=== PATIENT | female | born 1970 | race African-American/Black ===

== ENCOUNTER 2016-10-28 08:50 | Observation (INO) | payer OTHER ==
[2016-10-28] MEDS ORDERED: Pantoprazole IV* 40 MG IV ONE (10:07)
[2016-10-28 10:09] LABS: Hematocrit 32 % (35-47); Hemoglobin 10.2 g/dl (12.0-16.0); Mean Corpuscular HGB Conc 32 g/dl (31-36); Mean Corpuscular Hemoglobin 25 pg (27-31); Mean Corpuscular Volume 77 fL (80-97); Mean Platelet Volume 8 um3 (7.4-10.4); Red Cell Distribution Width 16 % (10.5-15); White Blood Count 7.3 10^3/ul (3.5-10.8)
[2016-10-28 10:24] LABS: Albumin 3.7 g/dL (3.2-5.2); EGFR Non-African American 96.4 (>60); Globulin 3.2 g/dL (2-4); Potassium 4.1 mmol/L (3.5-5.0); Total Bilirubin 0.3 mg/dL (0.2-1.0); Total Protein 6.9 g/dL (6.4-8.9)
[2016-10-28 10:25] LABS: Troponin I 0.03 ng/mL (<0.04)
[2016-10-28] MEDS ORDERED: Pantoprazole IV* 80 MG in NS 0.9% 250 ML* 250 ML IV SCH (11:00)
[2016-10-28] MEDS ORDERED: Pantoprazole IV* 80 MG in NS 0.9% 250 ML* 250 ML IVPB SCH (11:00)
[2016-10-28] MEDS ORDERED: Ondansetron INJ* 2 MG/ML VIAL IV PRN (12:34)
[2016-10-28] MEDS ORDERED: Acetaminophen TAB* 325 MG PO PRN (12:43)
[2016-10-28] MEDS ORDERED: traMADol TAB* 50 MG PO PRN (12:43)
[2016-10-28] MEDS: Pantoprazole IV* 80 MG in NS 0.9% 250 ML* 250 ML IVPB SCH ×2 (13:20→22:05)
[2016-10-28] MEDS: NS 0.9% 1000 ML* 1,000 ML IV SCH ×2 (13:32→23:40)
[2016-10-28 13:45] LABS: Hematocrit 29 % (35-47); Hemoglobin 9.4 g/dl (12.0-16.0)
[2016-10-28] MEDS ORDERED: Midazolam* 1 MG/ML 10 ML VIAL (10 MG) ONE (16:35)
[2016-10-28] MEDS ORDERED: Meperidine SYRINGE* 50 MG/ML ONE (16:35)
--- NOTE | 2016-10-28 19:15 | HP ---
HISTORY AND PHYSICAL: DATE OF ADMISSION: 10/28/16 PRIMARY CARE PROVIDER: Dr. Cai. CHIEF COMPLAINT: Hematemesis. HISTORY OF PRESENT ILLNESS: Ms. Dominguez is a 45-year-old female who has a history of chronic pain and utilizes ibuprofen 1200 mg at bedtime every night for the last 2 weeks but intermittently over the last month and a half, who went to the bed feeling "normal" though she states she has not been feeling 100 % for the last few weeks. She states that yesterday was somewhat odd in that she only ate oatmeal for breakfast at 0800 and again at dinner at 1920. She states that when she got home, she drank a lot a tea. She just did not feel well. She states she did not sleep well overnight. She noticed a fishy taste in her mouth. The patient woke up to get ready for work, was found to be very nauseous. She suddenly felt like she needed to vomit. She had been instructed in the past to vomit into something that could be evaluated as opposed to the toilet if it was out of the ordinary. The patient vomited into a gallon Ziploc bag. The patient noticed that the material was very black and there was red liquid and clots. The patient immediately after vomiting, sat down on the toilet and she passed a soft stool that was very black in color. The patient then took a shower and then had a second bowel movement after taking a shower. This too was very black. She denies any black stools prior to today. She does state that she had a colonoscopy [address] Blackmon due to change in eating habits and feeling unwell. The patient states that she has had epigastric discomfort since this past Thursday. The patient admits to feeling lightheaded. She denies any chest pain or palpitations. She does have chronic shortness of breath and this is no worse. The patient denies any other medication usage other than the ibuprofen. PAST MEDICAL HISTORY: 1. Borderline type 2 diabetes. 2. Chronic pain in the knees, hips and low back. MEDICATIONS: Ibuprofen 1200 mg p.o. q.h.s. ALLERGIES: PENICILLIN. FAMILY HISTORY: Mom is living. She is 70 and has diabetes. Dad at the age of 50 of cirrhosis secondary to alcoholism. SOCIAL HISTORY: The patient is a lifelong nonsmoker. She does not drink alcohol. 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 She is not . She has 1 child. Her sister, Caas, would be her surrogate decision maker. REVIEW OF SYSTEMS: The patient denies any fevers or chills. She admits to anorexia over the last few days. No chest pain. No edema. No palpitations. No cough. She does admit to chronic shortness of breath. Nausea and vomiting as above as well as epigastric pain as above. No true diarrhea, though she notes her stools are softer than usual. No hematuria, no dysuria, no focal weakness or sensory loss. No sudden changes in vision. She does note that food has been sticking in her throat more since this past Thursday. She admits to the joint pain as listed in her past medical history. No rashes, no anxiety or depression. At baseline though, she does state that she is nervous about her current situation. PHYSICAL EXAMINATION GENERAL: The patient is a well-developed middle-aged obese female, lying in the bed in no acute distress. VITAL SIGNS: Blood pressure 116/96, pulse 103, respirations 18, temp 97.2, O2 sat is 98% on room air. HEENT: Pupils are equal, they are round, they react to light. Extraocular muscles are intact. Oropharynx is clear. Oral mucosa is moist. NECK: There is no submandibular, cervical or supraclavicular adenopathy. Thyroid is not enlarged. No thyroid nodule is noted, though this is a difficult exam given her body habitus. PULMONARY: Lungs are clear to auscultation bilaterally. CARDIAC: Normal S1, S2. Heart rate is mildly tachycardic but regular. There is no lower extremity edema. ABDOMEN: Bowel sounds present. Abdomen is soft, obese, nondistended. She is tender in the epigastrium. MUSCULOSKELETAL: There is no cyanosis or clubbing of the digits. There is full active range of motion of all 4 extremities. SKIN: Warm and dry. There are no rashes. NEUROLOGIC: Cranial nerves II through XII are grossly intact. Sensation is intact to light touch throughout. Strength is 5/5 and symmetric in both upper and lower extremities bilaterally. PSYCH: The patient is alert, she is oriented x3. Affect appears appropriate. DIAGNOSTIC STUDIES/LAB DATA: WBC 7.3, hemoglobin 10.2, hematocrit 32, platelets 304. INR 1.06. Sodium 136, potassium 4.1, chloride 105, CO2 26, BUN 31, creatinine 0.66, glucose 159, calcium 9.0, bilirubin 0.3, AST 17, ALT 20, alk phos 92, troponin 0.03, albumin 3.7. EKG reveals sinus tachycardia without any acute ST -T-wave abnormalities. ASSESSMENT AND PLAN: Ms. Dominguez is a 45-year-old female who has a history of chronic pain for which she takes ibuprofen nightly, who presents to the emergency room with complaints of hematemesis and black stool. 1. Upper GI bleed. The patient's story and lab work are most consistent with an upper GI bleed. I suspect this is from NSAID use. The patient has been taking 1200 mg of ibuprofen nightly for the last 2 weeks but intermittently over the last month and a half. She does not take any PPI or any other medications. She does have epigastric pain. I am suspicious she may have an ulcer secondary to NSAID use. The patient's hemoglobin was low at 10.2; however , lab work from 2013 reveals her hemoglobin to be in the 10.5 to 11.5 range. The patient will be maintained on a Protonix drip. This has been ordered in the emergency room. The patient's case has been run by Dr. Oro who is system controller for Gastroenterology. The patient will be n.p.o. with plans for hopefully endoscopy later today. I will monitor the patient in the intensive care unit given the volume of blood she vomited up (she reportedly vomited enough to fill half the gallon bag). The patient is mildly tachycardic but otherwise is appearing stable. She is being placed in the ICU for close monitoring. 2. Borderline diabetes. The patient's hemoglobin A1c will be obtained from her emergency room labs. 3. Chronic pain. Tylenol and tramadol will be available for pain control. She will not be allowed to have any NSAIDs at this time. 4. DVT prophylaxis. According to the Adult Thrombosis Prophylaxis Risk Factor Assessment Guide, the patient has a total risk factor score of 2, making her moderate risk. SCD's will be utilized as DVT prophylaxis given her GI bleed. 5. Code status is DNR. The patient indicates again that her sister, Casa, is her surrogate decision maker. TIME SPENT: Sixty five minutes were spent admitting this patient. CC: Dr. Cai* [id number]/[facility] #: [id number] MTDLillie
--- NOTE | 2016-10-29 00:02 | CONS ---
GASTROENTEROLOGY CONSULT: DATE: 10/28/16 CONSULTING PHYSICIANS: Dr. Liliam Youssef, Dr. Mary Cai. REASON FOR CONSULT: Hematemesis. 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 She has been having epigastric pain for a number of months. It has worsened. She does have a pattern of having acid indigestion if she skips meals, but has never taken any self-prescribed stomach remedies and nothing by prescription. She has been taking ibuprofen 1200 mg a day since it was prescribed last May or June for pain in the low back, hip, and knee. Initially, she would take 400 to 600 mg several times a day, but she has taking all 1200 mg at night as it helps her sleep, she says. She has been doing that for over a month. She has a history of constipation and 3 weeks ago, had a colonoscopy at [place] that was said to be negative. The grading of the preparation is not available. PAST MEDICAL HISTORY: 1. , 1986. 2. Menorrhagia - status post uterine ablation, February 2014. 3. Breast biopsy, 2007. MEDICATIONS: Nothing per chronic prescription. SOCIAL HISTORY: She is originally from [facility]. 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 REVIEW OF SYSTEMS: She has been anemic for a number of years, but says she has never been on an iron supplement until October 2015, when after her medical appointment, she began taking Femiron. It made her more constipated than usual. She stopped taking it in February. She otherwise has been pushing pumpkin seed and spinach intake. No history of palpitations, syncope, OH, valvular disease, hemoptysis, TB, renal stones, or hepatitis. She has not had any abdominal surgery other than the C- section. PHYSICAL EXAM: She is a very substantially overweight black female in no distress. HEENT exam is unremarkable. She has no adenopathy, though the exam is limited. Lungs are clear and heart sounds are regular. Breast and pelvic exams deferred. The abdomen is obese, symmetric, soft, and nontender. Rectal: Deferred. Extremities show no gross deformity. Neurologic is nonfocal. IMPRESSION: Hematemesis in a woman on consistent high-dose nonsteroidal antiinflammatory drugs. Upper endoscopy is indicated. Her long-term anemia could be remedied by low-dose iron replacement initiated every other day to gain her confidence as regards constipation. [id number]/[facility] #: [id number] MTDD
[2016-10-29 05:39] LABS: Hematocrit 27 % (35-47); Hemoglobin 8.4 g/dl (12.0-16.0); Mean Corpuscular HGB Conc 32 g/dl (31-36); Mean Corpuscular Hemoglobin 25 pg (27-31); Mean Corpuscular Volume 78 fL (80-97); Mean Platelet Volume 8 um3 (7.4-10.4); Red Blood Count 3.41 10^6/ul (4.0-5.4); Red Cell Distribution Width 16 % (10.5-15); White Blood Count 6.7 10^3/ul (3.5-10.8)
[2016-10-29 05:52] LABS: BUN/Creatinine Ratio 23.9 (8-20); Calcium 8.3 mg/dL (8.6-10.3); EGFR African American 121.3 (>60); EGFR Non-African American 94.3 (>60); Potassium 3.7 mmol/L (3.5-5.0)
--- NOTE | 2016-10-29 07:21 | PN ---
Subjective Date of Service: 10/29/16 Interval History: Pt is feeling well. She states the epigastric pain she had on admission has now resolved. She denies any SOB. Objective Active Medications: Acetaminophen (Tylenol Tab*) 650 mg PO Q4H PRN PRN Reason: PAIN Sodium Chloride (Ns 0.9% 1000 Ml*) 1,000 mls @ 100 mls/hr IV PER RATE [facility] Last Admin: 10/28/16 23:40 Dose: 100 mls/hr Pantoprazole Sodium 80 mg/ (Sodium Chloride) 250 mls @ 25 mls/hr IVPB Q10H [facility] Last Admin: 10/28/16 22:05 Dose: 25 mls/hr Ondansetron HCl (Zofran Inj*) 4 mg IV Q6H PRN PRN Reason: NAUSEA Tramadol HCl (Ultram*) 50 mg PO Q6H PRN PRN Reason: PAIN Vital Signs 10/28/16 10/28/16 10/28/16 12:52 12:55 13:00 Temperature 97.5 F Pulse Rate 92 92 93 Respiratory 15 16 17 Rate Blood Pressure 130/84 (mmHg) O2 Sat by Pulse 99 99 99 Oximetry 10/28/16 10/28/16 10/28/16 13:01 13:15 14:00 Temperature Pulse Rate 95 89 81 Respiratory 21 17 22 Rate Blood Pressure 124/73 125/84 127/81 (mmHg) O2 Sat by Pulse 98 99 97 Oximetry 10/28/16 10/28/16 10/28/16 15:00 15:50 16:00 Temperature 98.3 F Pulse Rate 87 102 Respiratory 24 16 Rate Blood Pressure 113/73 115/52 (mmHg) O2 Sat by Pulse 97 98 Oximetry 10/28/16 10/28/16 10/28/16 17:00 17:30 17:55 Temperature Pulse Rate 90 101 102 Respiratory 22 18 23 Rate Blood Pressure 123/75 128/73 109/81 (mmHg) O2 Sat by Pulse 98 98 97 Oximetry 10/28/16 10/28/16 10/28/16 18:00 18:07 18:10 Temperature Pulse Rate 93 100 Respiratory 18 22 Rate Blood Pressure 121/67 112/60 129/77 (mmHg) O2 Sat by Pulse 98 98 Oximetry 10/28/16 10/28/16 10/28/16 18:15 18:21 18:25 Temperature Pulse Rate 108 134 131 Respiratory 31 19 23 Rate Blood Pressure 126/70 165/81 128/82 (mmHg) O2 Sat by Pulse 95 94 96 Oximetry 10/28/16 10/28/16 10/28/16 18:30 18:35 18:40 Temperature Pulse Rate 122 119 115 Respiratory 32 27 23 Rate Blood Pressure 131/74 108/66 125/69 (mmHg) O2 Sat by Pulse 94 95 96 Oximetry 10/28/16 10/28/16 10/28/16 18:45 18:50 18:55 Temperature Pulse Rate 112 106 107 Respiratory 25 27 26 Rate Blood Pressure 119/73 130/76 132/71 (mmHg) O2 Sat by Pulse 91 92 93 Oximetry 10/28/16 10/28/16 10/28/16 19:00 19:05 19:10 Temperature Pulse Rate 108 119 100 Respiratory 25 18 24 Rate Blood Pressure 120/69 130/72 134/76 (mmHg) O2 Sat by Pulse 92 97 95 Oximetry 10/28/16 10/28/16 10/28/16 19:15 19:20 19:25 Temperature Pulse Rate 96 100 95 Respiratory 24 24 25 Rate Blood Pressure 129/73 134/76 134/71 (mmHg) O2 Sat by Pulse 94 94 95 Oximetry 10/28/16 10/28/16 10/28/16 19:26 19:30 19:35 Temperature 99.4 F Pulse Rate 101 95 Respiratory 18 19 Rate Blood Pressure 121/80 124/85 (mmHg) O2 Sat by Pulse 99 99 Oximetry 10/28/16 10/28/16 10/28/16 19:40 19:45 19:50 Temperature Pulse Rate 100 101 98 Respiratory 20 23 23 Rate Blood Pressure 120/85 124/81 127/74 (mmHg) O2 Sat by Pulse 98 99 99 Oximetry 10/28/16 10/28/16 10/28/16 20:00 21:00 22:00 Temperature Pulse Rate 102 101 92 Respiratory 17 23 23 Rate Blood Pressure 118/85 127/70 136/75 (mmHg) O2 Sat by Pulse 99 93 94 Oximetry 10/28/16 10/28/16 10/28/16 23:00 23:03 23:32 Temperature 98.8 F Pulse Rate 89 92 Respiratory 23 24 Rate Blood Pressure 121/77 (mmHg) O2 Sat by Pulse 92 93 Oximetry 10/29/16 10/29/1610/29/17 00:00 00:01 01:00 Temperature Pulse Rate 89 89 Respiratory 21 23 23 Rate Blood Pressure 117/62 126/70 (mmHg) O2 Sat by Pulse 98 98 Oximetry 10/29/16 10/29/16 10/29/16 02:00 03:00 03:57 Temperature 98.9 F Pulse Rate 89 83 Respiratory 19 20 Rate Blood Pressure 104/61 110/58 (mmHg) O2 Sat by Pulse 99 98 Oximetry 10/29/16 10/29/16 10/29/16 04:00 05:00 06:00 Temperature Pulse Rate 95 87 Respiratory 19 18 18 Rate Blood Pressure 122/57 116/57 114/71 (mmHg) O2 Sat by Pulse 95 99 Oximetry Oxygen Devices in Use Now: None Appearance: Middle aged obese female lying in bed, NAD Eyes: No Scleral Icterus Ears/Nose/Mouth/Throat: Mucous Membranes Moist Respiratory: Symmetrical Chest Expansion and Respiratory Effort, Clear to Auscultation Cardiovascular: NL Sounds; No Murmurs; No JVD, RRR, No Edema Abdominal: NL Sounds; No Tenderness; No Distention Extremities: No Clubbing, Cyanosis Skin: No Rash or Ulcers, No Nodules or Sclerosis Neurological: Alert and Oriented x 3 Result Diagrams: 10/29/16 05:18 10/29/16 05:18 Microbiology and Other Data: Microbiology 10/28/16 18:13 CLOtest - Final Gastric Antrum 10/28/16 13:17 Nasal Screen MRSA (PCR)(SUSAN) - Final Nasal Mrsa Negative Assess/Plan/Problems-Billing Ms Dominguez is a 46 yo F who has a h/o chronic pain for which she routinely takes 1200mg of ibuprofen nightly who presented to the ER with c/o hematemesis and black stools concerning for UGIB. - Patient Problems (1) Upper GI bleed Current Visit: Yes Status: Acute Code(s): K92.2 - GASTROINTESTINAL HEMORRHAGE, UNSPECIFIED SNOMED Code(s): 94310355 Comment: The patient had endoscopy yesterday that showed a gastric ulcer. It was not actively bleeding. Will continue IV protonix for now. I suspect she may be able to be discharged home this afternoon if her H/H is stable. On d/c she will need to go out on omeprazole BID and iron every other day. (2) Acute blood loss anemia Current Visit: Yes Status: Acute Code(s): D62 - ACUTE POSTHEMORRHAGIC ANEMIA SNOMED Code(s): 464838116 Comment: The patient's H/H has dropped over the course of her hospitalization so far. I suspect some of this may be dilutional but additionally she has lost blood from her ulcer. Follow up H/H this afternoon at 1300. (3) Chronic pain Current Visit: Yes Status: Acute Code(s): G89.29 - OTHER CHRONIC PAIN SNOMED Code(s): 18764389 Comment: No further usage of ibuprofen. Can discuss using tylenol vs tramadol for pain. (4) Type II diabetes mellitus Current Visit: Yes Status: Acute Comment: The patient's A1c is elevated at 6.9% indicating type II DM. Will ask for nutrition consult to discuss diet managment. Will recommend diet and exercise for now but she will need to be followed by her PCP to determine if she should be started on metformin. (5) DVT prophylaxis Current Visit: Yes Status: Acute Code(s): HEV1413 - SNOMED Code(s): 122786973 Comment: SCDs (6) Full code status Current Visit: Yes Status: Acute Code(s): Z78.9 - OTHER SPECIFIED HEALTH STATUS SNOMED Code(s): 827639890 Status and Disposition: possibly d/c home this afternoon
[2016-10-29 07:57] LABS: Ferritin 16.2 ng/mL (11-307)
[2016-10-29] MEDS: Pantoprazole IV* 80 MG in NS 0.9% 250 ML* 250 ML IVPB SCH (08:57)
--- NOTE | 2016-10-29 11:05 | PRO ---
DATE: 10/28/16 - ROOM #[id number] REFERRING PHYSICIAN: Mary Cai MD* PROCEDURE: Upper gastrointestinal endoscopy and biopsy of stomach for CLOtest. INDICATION: Hematemesis and dark stool in a woman taking ibuprofen high dose for musculoskeletal pain. See separate consult. ENDOSCOPIST: Dr. Oro. MEDICATIONS: Midazolam 7, meperidine 50. FINDINGS: She is a morbidly obese woman in no overt distress at this moment. She says she has a little bit of upper abdominal soreness. Blood pressure is 120/65, pulse 105 to 110. EGD: Larynx - narrow consistent with her obesity, but appearing symmetric. Esophagus - easily entered. The mucosa is normal in the upper, mid, and lower esophagus with the EG junction at 38 loose and there is a small but wide hiatal hernia with recurrent gagging and fundic prolapse, though that does come under control. Stomach - normal mucosa in the cardia and fundus. The body appears normal with no blood present. In the posterior wall, proximal antrum, there is a deep ulcer with a couple of black spots. There is no bleeding and no adherent clot. There are several satellite smaller ulcers. There is no mound or deformed tissue suggesting malignancy. A CLOtest was taken from the opposite wall. Duodenum - pylorus, bulb, and second through fourth portions appear normal. IMPRESSION: 1. Moderate hiatal hernia. 2. GERD - with provocative meals. 3. Gastric ulcers - appear benign but healing should be documented in 2 months. 4. Morbid obesity - various options to be considered, though it is observed that bariatric surgery is a good treatment for reflux and might also help with musculoskeletal pain. [id number]/[facility] #: [id number] BAO
[2016-10-29 11:50] VITALS: BP 113/62
[2016-10-29 12:57] LABS: Hematocrit 27 % (35-47); Hemoglobin 8.6 g/dl (12.0-16.0)
--- NOTE | 2016-10-30 06:13 | DS ---
DISCHARGE SUMMARY: DATE OF ADMISSION: 10/28/16 DATE OF DISCHARGE: 10/29/16 PRIMARY CARE PROVIDER: Mary Cai MD PRINCIPAL DIAGNOSIS: Upper GI bleed with acute blood loss anemia secondary to gastric ulcer secondary to NSAID use. SECONDARY DIAGNOSES: 1. Obesity. 2. Chronic pain. DISCHARGE MEDICATIONS: 1. Tramadol 50 mg p.o. q.6 hours p.r.n. pain (new). 2. Omeprazole 20 mg p.o. b.i.d. x2 weeks, then daily (new). 3. Tylenol 650 mg p.o. q.4 hours p.r.n. pain. HOSPITAL COURSE: Ms. Dominguez is a 46-year-old female who presented to the emergency room on 10/28/16 with complaints of vomiting up blood and having black stools. The patient has been routinely taking 1200 mg of ibuprofen at bedtime for her chronic pain. She states that over the last couple of days, she had been feeling unwell. On the morning of admission, she felt suddenly very nauseous and vomited into a ziploc bag, where she noted to have a tremendous amount of bright red blood. The patient then had a very black bowel movement. She had a second black bowel movement and presented to the emergency room for evaluation. In the ER, the patient was found to have a hemoglobin of 10.2. This trended down to 9.4 in the afternoon of 10/28/16 down to 8.4 on the morning of 10/29/16. A followup hemoglobin on 10/29/16 in the afternoon, stable at 8.6. The patient, given the hematemesis, underwent endoscopy, which revealed a moderate hiatal hernia, GERD with provocative meals. Gastric ulcers did appear benign, but healing should be documented in 2 months. The patient was initially started on Protonix drip and has since been converted to omeprazole 20 mg p.o. twice daily to be continued for the next 2 weeks, then down to once daily. At this point, the patient's hemoglobin is stable and she is ready for discharge home. Of note, the patient previously had been told that she has borderline diabetes. The patient's hemoglobin A1c is elevated at 6.9% indicating she has in fact type 2 diabetes. The patient met with the dietitian for diabetes education and diet instructions. She should work on diet and exercise over the next several months; however, if she is unable to improve her A1c, the initiation of metformin should be considered. FOLLOWUP CONCERNS: The patient is being discharged home today on 10/29/16. She is to follow up with Dr. Cai on 10/31/16 at 11 a.m. She is also to follow up with Dr. Oro in 4 weeks. ACTIVITY LEVEL: As tolerated. DIET: Consistent-carbohydrate, low-fat. She is to have a CBC on 11/03/16. CONDITION ON DISCHARGE: Stable. TIME SPENT: Thirty-five minutes was spent discharging this patient. CC: Dr. Cai* [id number]/[facility] #: [id number] BAO
== END 2016-10-29 16:00 | disposition home or self-care (01) ==
LOC: ED 08:50 → INTOOBSV 12:02 → ICU 12:02 → MED 10-29 11:39
PROVIDERS: ADMIT Hospitalist; ATTEND Hospitalist
PROC: 0DB68ZX Excision of Stomach, Via Natural or Artificial Opening Endoscopic, Diagnostic (ICD-10-PCS; principal; 2016-10-28)
DX: K25.4 Chronic or unspecified gastric ulcer with hemorrhage (principal); D62 Acute posthemorrhagic anemia; K44.9 Diaphragmatic hernia without obstruction or gangrene; K21.9 Gastro-esophageal reflux disease without esophagitis; E66.01 Morbid (severe) obesity due to excess calories; G89.29 Other chronic pain; Z79.1 Long term (current) use of non-steroidal anti-inflammatories (NSAID); R73.03 Prediabetes; R00.0 Tachycardia, unspecified; Z79.899 Other long term (current) drug therapy
CPT/HCPCS: 36415; 80048; 80053; 82271; 82728; 83036; 83540; 83550; 84484; 85014; 85018; 85025; 85027; 85610; 85730; 86850; 86900; 86901; 87077; 87641; 93005; 96374; 96376; 99284; G0378; J2250

== ENCOUNTER 2017-02-12 14:03 | Emergency (ER) | payer OTHER ==
[2017-02-12 15:41] LABS: Hematocrit 34 % (35-47); Hemoglobin 10.1 g/dl (12.0-16.0); Mean Corpuscular HGB Conc 30 g/dl (31-36); Mean Corpuscular Hemoglobin 19 pg (27-31); Mean Corpuscular Volume 64 fL (80-97); Mean Platelet Volume 9 um3 (7.4-10.4); Red Cell Distribution Width 21 % (10.5-15); White Blood Count 11.3 10^3/ul (3.5-10.8)
[2017-02-12 15:46] LABS: Comments Flag Yes
[2017-02-12 15:47] LABS: Add Diff/Slide Review? Slide Review Added
[2017-02-12 15:54] LABS: Albumin 3.9 g/dL (3.2-5.2); BUN/Creatinine Ratio 9.5 (8-20); Calcium 9.4 mg/dL (8.6-10.3); EGFR African American 108.2 (>60); EGFR Non-African American 84.1 (>60); Globulin 4.3 g/dL (2-4); Potassium 3.5 mmol/L (3.5-5.0); Total Bilirubin 0.4 mg/dL (0.2-1.0); Total Protein 8.2 g/dL (6.4-8.9)
[2017-02-12 15:55] LABS: Troponin I 0.01 ng/mL (<0.04)
[2017-02-12 16:27] LABS: Microcytosis 3+
[2017-02-12 16:28] LABS: Hypochromasia 1+
[2017-02-12 18:03] VITALS: BP 140/89
[2017-02-12] MEDS ORDERED: Witch Hazel PAD* JAR TOPICAL SCH (19:30)
[2017-02-12] MEDS ORDERED: Iohexol 300* (CONTRAST) 10 ML SDV IV ONE (20:49)
[2017-02-12] MEDS ORDERED: oxyCODONE/Acetamin 5/325 MG* TAB PO ONE ×2 (23:45→23:46)
--- NOTE | 2017-02-13 00:10 | ED ---
Valeria Corrales Seung-Jae, scribed for Angelia Bazan MD on 02/12/17 at 2133 . Abdominal Pain/Female - HPI Summary HPI Summary: A 46 yo F pt c/o of stomach cramps since yesterday 13:00 generally on the left side of abd. On Thursday02/07/17 the pain was transient, but since yesterday the pain has been constant. She started having diarrhea at 1:00 today, and has been vomiting undigested food; last episode at midnight. Pt denies hemetemesis and melena. Pt has a history of anemia but no hx of kidney stones. She has no hx of cholecystectomy, but has had a colonoscopy done 10/09/2016 and none was found except for external hemorrhoids. Pt also had endoscopy on 10/26/16, the gastric ulcer had healed, pt was treated for H.Pylori. with antibiotics. Pt has no allergies to medications and lives alone. Last meal that pt had was at noon yesterday. Pt states she has seen blood in the diarrhea but does not know if it is from her hemorrhoids which are painful or the colon. No fever. Pt declines pain medication at the time of initial evaluation. - History of Current Complaint Chief Complaint: EDAbdPain Stated Complaint: STOMACH CRAMPS,DIARREAH,THIRSTY Hx Obtained From: Patient Hx Last Menstrual Period: 2 yrs ago ?: No Onset/Duration: Gradual Onset, Lasting Days, Still Present Timing: Constant Severity Initially: Moderate Severity Currently: Severe Pain Intensity: 10 Pain Scale Used: 0-10 Numeric Location: Discrete At: LLQ Radiates: No Character: Cramping Aggravating Factor(s): Food, Other: - sitting position Alleviating Factor(s): Nothing Associated Signs and Symptoms: Positive: Blood in Stool, Decreased Appetite, Vomiting, Diarrhea, Other: - negative hemetemesis. Negative: Fever, Chest Pain , Nausea Allergies/Adverse Reactions: Allergies Allergy/AdvReac Type Severity Reaction Status Date / Time No Known Allergies Allergy Verified 02/12/17 19:36 PMH/Surg Hx/FS Hx/Imm Hx Previously Healthy: No - gastric ulcer Endocrine/Hematology History: Reports: Hx Diabetes - pre diabetic, Hx Anemia Respiratory History: Reports: Other Respiratory Problems/Disorders - SOB r/t Weight Gain GI History: Reports: Hx Ulcer - gastric, H. pylori Musculoskeletal History: Reports: Hx Arthritis - HIPS, KNEES, LOW BACK, Hx Back Problems Sensory History: Comment Only: Hx Contacts or Glasses - GLASSES Opthamlomology History: Comment Only: Hx Contacts or Glasses - GLASSES Neurological History: Reports: Hx Headaches Psychiatric History: Reports: Hx Depression - Surgical History Surgery Procedure, Year, and Place: [facility] Hx Anesthesia Reactions: No Infectious Disease History: No Infectious Disease History: Denies: Traveled Outside the [place] in Last 30 Days - Family History Known Family History: Positive: Diabetes - in pt's mother and sister Family History: No FHx of malignant hyperthermia. No FHx of anesthesia reaction - Social History Occupation: Employed Full-time - psychologist at [employer] Lives: Alone Alcohol Use: Occasionally Alcohol Amount: 1 DRINK/MONTH Substance Use Type: Reports: None Hx Tobacco Use: No Smoking Status (MU): Never Smoked Tobacco Have You Smoked in the Last Year: No Review of Systems Constitutional: Negative Cardiovascular: Negative Respiratory: Negative Positive: Abdominal Pain, Vomiting, Diarrhea, Other - negative hemetemesis, melena Genitourinary: Negative Positive: other - external hemorrhoids Skin: Negative Neurological: Negative Psychological: Normal All Other Systems Reviewed And Are Negative: Yes Physical Exam - Summary Physical Exam Summary: RECTAL: EXTERNAL HEMORRHOIDS NON-THROMBOSED. non bulging. Triage Information Reviewed: Yes Vital Signs On Initial Exam: Initial Vitals Temp Pulse Resp BP Pulse Ox 97.8 F 81 17 148/83 100 02/12/17 14:18 02/12/17 14:18 02/12/17 14:18 02/12/17 14:18 02/12/17 14:18 Vital Signs Reviewed: Yes Appearance: Positive: Well-Appearing, Pain Distress - moderate, Obese Skin: Positive: Warm, Skin Color Reflects Adequate Perfusion Head/Face: Positive: Normal Head/Face Inspection Eyes: Positive: Conjunctiva Clear ENT: Positive: Normal ENT inspection Neck: Positive: Supple, Nontender Respiratory/Lung Sounds: Positive: Clear to Auscultation, Breath Sounds Present Cardiovascular: Positive: RRR, Pulses are Symmetrical in both Upper and Lower Extremities. Negative: Murmur, Leg Edema Left, Leg Edema Right Abdomen Description: Positive: No Organomegaly, Soft, Other: - LLQ tenderness. Negative: CVA Tenderness (R), CVA Tenderness (L), Distended, Guarding, Splenomegaly Bowel Sounds: Positive: Present Musculoskeletal: Positive: Strength/ROM Intact. Negative: Edema Left, Edema Right Neurological: Positive: Sensory/Motor Intact, Alert, Oriented to Person Place, Time. Negative: Facial Droop, Focal Deficit @, Slurred Speech Psychiatric: Positive: Normal - Usman Coma Scale Coma Scale Total: 15 Diagnostics - Vital Signs Vital Signs Temp Pulse Resp BP Pulse Ox 02/12/17 18:02 74 18 140/89 100 02/12/17 16:44 98.3 F 82 18 128/85 100 02/12/17 16:22 98.3 F 78 17 130/103 98 02/12/17 14:22 97.8 F 81 17 148/83 100 02/12/17 14:18 97.8 F 81 17 148/83 100 - Laboratory Lab Results: Lab Results 02/12/17 02/12/17 Range/Units 15:15 15:15 WBC 11.3 H (3.5-10.8) 10^3/ul RBC 5.30 (4.0-5.4) 10^6/ul Hgb 10.1 L (12.0-16.0) g/dl Hct 34 L (35-47) % MCV 64 L (80-97) fL MCH 19 L (27-31) pg MCHC 30 L (31-36) g/dl RDW 21 H (10.5-15) % Plt Count 431 (150-450) 10^3/ul MPV 9 (7.4-10.4) um3 Neut % (Auto) 74.7 (38-83) % Lymph % (Auto) 17.9 L (25-47) % [place] % (Auto) 5.5 (1-9) % Eos % (Auto) 1.0 (0-6) % Baso % (Auto) 0.9 (0-2) % Absolute Neuts (auto) 8.5 H (1.5-7.7) 10^3/ul Absolute Lymphs (auto) 2.0 (1.0-4.8) 10^3/ul Absolute Monos (auto) 0.6 (0-0.8) 10^3/ul Absolute Eos (auto) 0.1 (0-0.6) 10^3/ul Absolute Basos (auto) 0.1 (0-0.2) 10^3/ul Absolute Nucleated RBC 0 10^3/ul Nucleated RBC % 0 Normal RBC Morphology Not Reportable Hypochromasia 1+ Microcytosis 3+ Sodium 136 (133-145) mmol/L Potassium 3.5 (3.5-5.0) mmol/L Chloride 102 (101-111) mmol/L Carbon Dioxide 28 (22-32) mmol/L Anion Gap 6 (2-11) mmol/L BUN 7 (6-24) mg/dL Creatinine 0.74 (0.51-0.95) mg/dL Est GFR ( Amer) 108.2 (>60) Est GFR (Non-Af Amer) 84.1 (>60) BUN/Creatinine Ratio 9.5 (8-20) Glucose 108 H (70-100) mg/dL Calcium 9.4 (8.6-10.3) mg/dL Total Bilirubin 0.40 (0.2-1.0) mg/dL AST 30 (13-39) U/L ALT 29 (7-52) U/L Alkaline Phosphatase 122 H (34-104) U/L Troponin I 0.01 (<0.04) ng/mL Total Protein 8.2 (6.4-8.9) g/dL Albumin 3.9 (3.2-5.2) g/dL Globulin 4.3 H (2-4) g/dL Albumin/Globulin Ratio 0.9 L (1-3) Result Diagrams: 02/12/17 15:15 02/12/17 15:15 Lab Statement: Any lab studies that have been ordered have been reviewed, and results considered in the medical decision making process. Re-Evaluation - Re-Evaluation 1 Re-Evaluation Time: 22:16 Change: Improved Comment: Discussing lab results with pt, and learned that pt can ambulate, abd pain still present but reduced. Second Eval Re-Evaluation Time: 23:45 Change: Unchanged - discussed CT results and pain control and diet and need for definite follow up with Dr. Oro Abdominal Pain Fem Course/Dx - Course Course Of Treatment: Pt is 46 y/o F presenting with abd pain, n/v/d, hemorrhoids and cramps onset yesterday. Denies hemetemesis and melena. No prev cholecystectomy. Pert PMHx: gastric ulcer. Colonoscopy on 10/09/2016; endoscopy on 10/26/16. Gastric ulcer has healed, pt treated for H.Pylori. NKA. Pt given witch vahid in ED for the hemorrhoids with some relief. Also given one percocet 5/325mg prior to discharge and one for home use. A/P CT shows nonspecific colitis, fatty liver, umbilical hernia, trace ascites, trace fluid in the post cul-de-sac. Pt given colitis instructions and advised to have definite follow up. - Diagnoses Differential Diagnosis: Positive: Abdominal Aortic Aneurysm, ACS, Bowel Obstruction, Constipation, Diverticulitis, Gall Bladder Disease, Irritable Bowel Syndrome, Peptic Ulcer Disease, Renal Colic, Urinary Tract Infection Provider Diagnoses: Colitis, acute, Hemorrhoids Discharge - Discharge Plan Condition: Stable Disposition: HOME Prescriptions: Witch Vahid PAD* [Tucks*] 1 pad TOPICAL DAILY #1 jar oxyCODONE/Acetamin 5/325 MG* [Percocet 5/325 TAB*] 1 tab PO Q4H PRN #15 tab MDD 6 PRN Reason: Severe Pain Patient Education Materials: Hemorrhoids (ED), Colitis (ED) Forms: *Work Release Referrals: Ilia Oro MD [Medical Doctor] - 1 Day (call in am to discuss your CT results and your abd pain and arrange follow up. ) Bharath Huerta NP [Primary Care Provider] - Additional Instructions: Your CT showed nonspecific colitis. It also showed a fatty liver, normal appendix, umbilical hernia, trace scites, and trace fluid in the cul-de sac. You did not have any diarrhea while in the ER. If you have recurrent diarrhea it needs to be tested to see if it is C. difficile colitis, which is the antibiotic associated colitis, since you took antibiotics to treat your gastric ulcers. You may take percocet or tramadol for your pain, but not both at the same time. You were given one percocet 5/325mg at 11:45pm. You may take the next one in 4 hrs if you still have pain. There is a prescription for more percocet at the [facility] pharmacy on . There is also a prescription for TUCKS pads for external treatment of your hemorrhoids. Eat a bland, low fiber diet. Return to the ER if you have new or worsening symptoms, and have definite follow up with Dr. Oro. Call his office in the morning. You may obtain official copies of all of your records by contacting medical records at the hospital. The documentation as recorded by the Valeria benedict Seung-Jae accurately reflects the service I personally performed and the decisions made by me, Angelia Bazan MD.
--- NOTE | 2017-02-13 07:24 | RAD ---
INDICATION: Left lower quadrant abdominal pain, crampy diarrhea. COMPARISON: There are no prior studies available for comparison. TECHNIQUE: A CT scan of the abdomen and pelvis was performed with intravenous and oral contrast following intravenous injection of 150 ml of Omnipaque 300 nonionic contrast. Contiguous axial sections were obtained from the lung bases through the symphysis pubis. Images were reconstructed in the coronal and sagittal planes. FINDINGS: There is mild dependent bilateral lower lobe subsegmental atelectasis. No pleural effusion is present. The liver and spleen are normal in size without significant focal abnormality. The liver is decreased in attenuation consistent with fatty infiltration. No calcified gallstones are seen. The pancreas appears to be within normal limits. The kidneys and adrenal glands are normal in size. No hydronephrosis is seen. No significant focal renal abnormality is seen. The aorta is normal in caliber and demonstrates homogeneous contrast opacification. The celiac, superior mesenteric and inferior mesenteric arteries appear widely patent. No significant enlarged retroperitoneal lymph nodes are seen. The stomach, small and large bowel appear nondistended. The appendix is within normal limits. There is circumferential thickening of the wall of the distal descending, proximal and mid sigmoid colon with interstitial infiltration of the surrounding fat most consistent with colitis. There is a periumbilical hernia containing fat. The uterus is anteverted and mildly enlarged. There is a small amount of free intraperitoneal fluid. No free intraperitoneal air is seen. No significant focal osseous abnormality is seen. IMPRESSION: 1. FINDINGS CONSISTENT WITH COLITIS INVOLVING THE DESCENDING AND SIGMOID COLON. 2. SMALL AMOUNT OF FREE INTRAPERITONEAL FLUID. 3. HEPATIC STEATOSIS. 4. PERIUMBILICAL HERNIA CONTAINING FAT.
== END 2017-02-13 00:07 | disposition home or self-care (01) ==
LOC: ED 14:03
DX: K52.9 Noninfective gastroenteritis and colitis, unspecified (principal); K64.4 Residual hemorrhoidal skin tags; R10.32 Left lower quadrant pain; R11.10 Vomiting, unspecified; R19.7 Diarrhea, unspecified
CPT/HCPCS: 36415; 74177; 80053; 84484; 85025; 99283; A9270-GY; Q9967